=== PATIENT | female | born 1955 | race Caucasian/White ===

== ENCOUNTER 2018-05-02 22:27 | Emergency (ER) | payer OTHER ==
[~2018-05-02] VITALS: Ht 152.4 cm; Wt 69.4 kg
[2018-05-02 22:52] VITALS: Ht 152.4 cm; Wt 69.4 kg
[2018-05-03 00:04] VITALS: BP 122/83
== END 2018-05-03 00:04 | disposition home or self-care (01) ==
LOC: ED 22:27
DX: R42 Dizziness and giddiness (principal); R11.0 Nausea; I10 Essential (primary) hypertension; E11.9 Type 2 diabetes mellitus without complications; E03.9 Hypothyroidism, unspecified

== ENCOUNTER 2018-07-20 20:49 | Emergency (ER) | payer OTHER ==
[~2018-07-20] VITALS: Ht 152.4 cm; Wt 66.7 kg
[2018-07-20 22:06] LABS: BASOPHIL % 0.5 % (0-2); PLATELET COUNT 292 x10^3mcL (130-400); RED CELL DISTRIBUTION WIDTH 12.1 % (11.5-14.5)
[2018-07-20 22:12] LABS: CALCIUM 9.2 mg/dL (8.5-10.1); CARBON DIOXIDE 29.4 mmol/L (21-32); POTASSIUM SERUM 3.8 mmol/L (3.5-5.1)
[2018-07-20 22:26] LABS: ALBUMIN 4.2 g/dL (3.4-5.0); BILIRUBIN TOTAL 0.4 mg/dL (0.20-1.00); FREE T4 1.68 ng/dL (0.76-1.46)
[2018-07-20 22:29] LABS: TOTAL PROTEIN, SERUM 10.1 g/dL (6.4-8.2)
[2018-07-20 22:58] VITALS: BP 115/79
== END 2018-07-20 22:58 | disposition home or self-care (01) ==
LOC: ED 20:49
PROVIDERS: Emergency Medicine
DX: M43.6 Torticollis (principal); I10 Essential (primary) hypertension; E03.9 Hypothyroidism, unspecified
CPT/HCPCS: 36415; 84439

== ENCOUNTER 2018-07-24 16:59 | Emergency (ER) | payer OTHER ==
[2018-07-24 17:10] VITALS: Ht 160 cm
[2018-07-24 19:03] LABS: BASOPHIL % 0.6 % (0-2); PLATELET COUNT 247 x10^3mcL (130-400); RED CELL DISTRIBUTION WIDTH 12.1 % (11.5-14.5)
[2018-07-24 19:07] LABS: CALCIUM 8.9 mg/dL (8.5-10.1); CARBON DIOXIDE 26.3 mmol/L (21-32); POTASSIUM SERUM 3.5 mmol/L (3.5-5.1)
[2018-07-24 19:19] LABS: ALBUMIN 3.8 g/dL (3.4-5.0); BILIRUBIN TOTAL 0.44 mg/dL (0.20-1.00); FREE T4 1.95 ng/dL (0.76-1.46); MAGNESIUM 2.1 mg/dL (1.8-2.4)
[2018-07-24 19:35] LABS: TOTAL PROTEIN, SERUM 8.9 g/dL (6.4-8.2)
[2018-07-24 20:08] VITALS: BP 101/64
== END 2018-07-24 20:09 | disposition home or self-care (01) ==
LOC: ED 16:59
PROVIDERS: Emergency Medicine
DX: N64.4 Mastodynia (principal); R53.1 Weakness; E86.0 Dehydration; E07.9 Disorder of thyroid, unspecified; D64.9 Anemia, unspecified; I10 Essential (primary) hypertension
CPT/HCPCS: 36415; 84207; 84425; 84439

== ENCOUNTER 2018-08-27 16:10 | Emergency (ER) | payer OTHER ==
[~2018-08-27] VITALS: Ht 152.4 cm; Wt 63.5 kg
[2018-08-27 16:15] VITALS: BP 141/84; Ht 152.4 cm; Wt 63.5 kg
== END 2018-08-27 18:38 | disposition home or self-care (01) ==
LOC: ED 16:10
DX: F41.1 Generalized anxiety disorder (principal); F43.0 Acute stress reaction; I10 Essential (primary) hypertension; E03.9 Hypothyroidism, unspecified; Z90.49 Acquired absence of other specified parts of digestive tract

== ENCOUNTER 2020-10-11 14:32 | Emergency (ER) | payer BC ==
[~2020-10-11] VITALS: Ht 152.4 cm; Wt 64.9 kg
[2020-10-11 15:03] VITALS: Ht 152.4 cm; Wt 64.9 kg
[2020-10-11 16:31] VITALS: BP 120/81
== END 2020-10-11 16:31 | disposition home or self-care (01) ==
LOC: ED 14:32
DX: N39.0 Urinary tract infection, site not specified (principal); L29.2 Pruritus vulvae; I10 Essential (primary) hypertension; E03.9 Hypothyroidism, unspecified